=== PATIENT | female | born 1985 | race Caucasian/White ===

== ENCOUNTER 2020-04-28 11:02 | Emergency (ER) | payer BC ==
[~2020-04-28] VITALS: Ht 162.6 cm; Wt 50.8 kg
[2020-04-28 12:44] VITALS: BP_SYST 107
--- NOTE | 2020-04-28 12:48 | NUR ---
AMBULATED TO [facility] 2
--- NOTE | 2020-04-28 12:50 | NUR ---
EXAMINED BY DR. NEVAREZ
[2020-04-28] MEDS ORDERED: KETOROLAC TROMETHAMINE 30 MG VIAL IVP ONE (13:00)
[2020-04-28] MEDS ORDERED: ACYCLOVIR IV 750 MG in D5W 100 ML IV ONE (13:00)
[2020-04-28 14:50] VITALS: BP_SYST 121
== END 2020-04-28 14:50 | disposition home or self-care (01) ==
LOC: SED 11:02
DX: B02.9 Zoster without complications (principal)
CPT/HCPCS: 96365; 96375; 99284; J0133; J1885; J7060

== ENCOUNTER 2020-04-29 10:16 | Emergency (ER) | payer BC ==
[~2020-04-29] VITALS: Ht 167.6 cm; Wt 54.4 kg
[2020-04-29 10:30] VITALS: BP_SYST 134
--- NOTE | 2020-04-29 10:30 | NUR ---
DR. BARBER EXAMINING PT
[2020-04-29] MEDS ORDERED: ACYCLOVIR IV 500 MG in D5W 100 ML IV ONE (10:45)
[2020-04-29] MEDS ORDERED: cefTRIAXone 1 GM IVPB PREMIX 50 ML IV ONE (10:45)
--- NOTE | 2020-04-29 10:55 | NUR ---
PLACED IN HALLWAY 1
--- NOTE | 2020-04-29 10:57 | NUR ---
FAST TRACK1
--- NOTE | 2020-04-29 11:15 | NUR ---
C/O SHINGLES, REDNESS AND SWELLING RT FACE. I CARED FOR PT YESTERDAY AND OBSERVED AN IMPROVEMENT. NO DISTRESS, RESP UNLABORED,
--- NOTE | 2020-04-29 13:10 | NUR ---
Patient given written and verbal discharge instructions and verbalizes understanding. ER MD discussed with patient the results and treatment provided. Patient in stable condition. ID arm band removed. IV catheter removed intact and dressing applied, no active bleeding. Rx of KEFLEX given. Patient educated on pain management and to follow up with PMD. Pain Scale . Opportunity for questions provided and answered. Medication side effect fact sheet provided.
[2020-04-29 13:12] VITALS: BP_SYST 128
== END 2020-04-29 13:12 | disposition home or self-care (01) ==
LOC: SED 10:16
DX: B02.8 Zoster with other complications (principal); L03.211 Cellulitis of face
CPT/HCPCS: 36415; 87040; 96365; 96367; 99284; J0133; J0696; J7060